=== PATIENT | male | born 1955 | race Caucasian/White ===

== ENCOUNTER 2018-07-17 10:57 | Inpatient (IN) | payer MEDICARE, OTHER | END 2018-07-19 18:47 | disposition home or self-care (01) | LOC: ER 10:57 → ED HOLD 14:40 → SUR 3N 15:37 | PROC: 0TC68ZZ Extirpation of Matter from Right Ureter, Via Natural or Artificial Opening Endoscopic (ICD-10-PCS; principal; 2018-07-18 10:55) | PROC: 0T768DZ Dilation of Right Ureter with Intraluminal Device, Via Natural or Artificial Opening Endoscopic (ICD-10-PCS; 2018-07-18 10:55) | DX: N13.2 Hydronephrosis with renal and ureteral calculous obstruction (principal); E87.2 Acidosis; N11.1 Chronic obstructive pyelonephritis; N17.9 Acute kidney failure, unspecified; G47.31 Primary central sleep apnea ==